=== PATIENT | female | born 1935 | race Caucasian/White ===

== ENCOUNTER 2020-06-03 13:40 | Observation (INO) | payer MEDICARE, OTHER ==
[2020-06-03] MEDS ORDERED: Sodium Chloride 0.9% 10 ML Syringe FLUSH PRN (13:59)
--- NOTE | 2020-06-03 13:59 | EDM.PDOC ---
ED HPI GENERAL MEDICAL PROBLEM - General Chief Complaint: Chest Pain Stated Complaint: CHEST PAIN Time Seen by Provider: 06/03/20 13:54 Source of Information: Reports: Patient, EMS History Limitations: Reports: No Limitations - History of Present Illness INITIAL COMMENTS - FREE TEXT/NARRATIVE: Patient presents emergency room via EMS, for the chief complaint of left-sided chest pain. She was sitting at home watching [place] on Netflix develop two short intermittent episodes of sharp left-sided anterior chest pain with no radiation. Both times the chest pain lasted for a few minutes. The patient got up from her chair to get her neighbor in the nearby apartment room in which the neighbor sat down with her. The patient was very weak and barely could get back to her chair. That is when she decided to call 911. She did take her diltiazem 60 mg tablet along with a half of baby aspirin. She states the pain relieved after she took the medicine. Patient has has history of acid reflux/belching which is getting worse and uncontrollable, history of coronary artery spasms which she was seen by her primary doctor yesterday. The patient was on 190 mg of diltiazem daily for a very long time, she notes a Cash [employer] quit making 190 mg tablets and therefore she was decreased down to 120 mg tablets and she states that her symptoms have been worse since she is been at the lower dose. Therefore her family doctor increased her dose 180 mg daily by taking 60 mg instant release 3 times a day. She has not started that dosing as she was going to pick it up at the pharmacy today. The patient states that she felt shortness of breath ,fatigue, and very anxious. She does have history of anxiety which has also been getting worse in which her escitalopram dose was increased yesterday to 10 mg daily. On arrival the EMS said the patient was chest pain-free therefore they did not give her nitroglycerin. They did give her 4 baby aspirin. They administered oxygen by nonrebreather because they thought that would help her anxiety. She did not have low oxygen saturations. Her vitals have been stable and she is had a little bit elevated blood pressures in sBP 160s and HR 80 regular. The patient was tested for COVID-19 1 week ago and was negative. She does not have any Covid-19 new exposures or has any concerns of that. She has no fever ,chills, body aches, cough ,or upper respiratory symptoms. - Related Data Allergies Allergy/AdvReac Type Severity Reaction Status Date / Time Iodine and Iodide Containing Allergy Severe Anaphylactic Verified 06/03/20 14:40 Produc Shock povidone-iodine Allergy Severe Anaphylactic Verified 06/03/20 14:40 [From Betadine] Shock soap [From Betadine] Allergy Severe Anaphylactic Verified 06/03/20 14:40 Shock azithromycin Allergy Diarrhea, Verified 06/03/20 14:40 rash Cephalosporins Allergy Rash Verified 06/03/20 14:40 ciprofloxacin Allergy Rash Verified 06/03/20 14:40 Iodinated Contrast Media Allergy Anaphylactic Verified 06/03/20 14:40 Shock Penicillins Allergy Diarrhea, Verified 06/03/20 14:40 Rash Sulfa (Sulfonamide Allergy Diarrhea, Verified 06/03/20 14:40 Antibiotics) Rash Tetracyclines Allergy Rash Verified 06/03/20 14:40 Home Meds: Home Meds Fluticasone Propionate [Flonase] 1 spray LEANNA BID PRN 09/29/15 [History] Latanoprost/Pf [Latanoprost 0.005% Eye Drop] 1 drop EYEBOTH BEDTIME 02/01/20 [History] Timolol Maleate 1 drop EYEBOTH DAILY 02/01/20 [History] dilTIAZem HCL [Cardizem] 60 mg PO TID 02/01/20 [History] Cholecalciferol (Vitamin D3) [Vitamin D3] 1 tab PO DAILY 05/23/20 [History] Escitalopram Oxalate 5 mg PO BID 05/23/20 [History] Omeprazole 20 mg PO BID 05/23/20 [History] Simethicone [Gas Relief] 180 mg PO Q4H PRN 05/23/20 [History] Loratadine [Allergy Relief] 10 mg PO DAILY PRN 06/03/20 [History] Multivitamin with Minerals [Multiple Vitamin] 1 tab PO DAILY 06/03/20 [History] Past Medical History HEENT History: Reports: Allergic Rhinitis, Cataract, Glaucoma, Hard of Hearing, Impaired Vision, Sinusitis Other HEENT History: The patient wears glasses. Bilateral presbycusis with no current hearing aide therapy. Allergic rhinitis and sinusitis. Cardiovascular History: Reports: Afib, Arrhythmia, CAD, Cardiomyopathy, Heart Murmur, Hypertension, Other (See Below) Other Cardiovascular History: Cardiomegaly by chest x-ray. Mild to moderate tricuspid valve insufficiency, mild aortic valve calcification without stenosis, and mild aortic valve and mitral valve insufficiency by echocardiogram. Atrial fibrillation in 2009 with otherwise no previous or current anticoagulation therapy or history of CT. Respiratory History: Reports: Asthma, Bronchitis, Recurrent, COPD, Intubation, Previous, Sleep Apnea, Other (See Below) Other Respiratory History: Left-sided rib fractures by chest x-ray. Benign pulmonary nodules. Gastrointestinal History: Reports: Chronic Constipation, Colon Polyp, Diverticulosis, Fatty Liver, Gastritis, GERD, Hemorrhoids, Hiatal Hernia, Irritable Bowel Syndrome Other Gastrointestinal History: History of tubular adenoma at 15 cm and hyperplastic colonic polyp at 18 cm at time of colonoscopy on 03/04/11. Hyperplastic colonic polyp at time of colonoscopy in 09/30/15. Diverticulitis requiring colon resection as below. Benign hepatic cysts with history of fatty liver and LFTs elevation. Gastritis, esophagitis, and large hiatal hernia requiring surgery as below with recurrence of her reflux and hiatal hernia after fundoplication by below. Genitourinary History: Reports: Retention, Urinary, Urinary Incontinence, UTI, Recurrent, Other (See Below) Other Genitourinary History: History of recurrent uterine and vaginal prolapses with urinary incontinence and recurrent UTIs. [employer] History: Reports: , Prolapsed Uterus Other C[employer] History: Surgical menopause with Complete hysterectomy and bilateral salpingo-oophorectomy in her 40s likely secondary to her uterine prolapse, etc. after a difficult delivery. Full term delivery without secondary to partial placenta previa with her last delivery. Otherwise, Full term without complications during pregnancies or deliveries. Musculoskeletal History: Reports: Arthritis, Back Pain, Chronic, Fracture, Neck Pain, Chronic, Osteoarthritis, Osteoporosis Other Musculoskeletal History: Scoliosis. History of right wrist, right shoulder, left ribs and right clavicular fractures. Neurological History: Reports: CVA, TIA, Other (See Below) Other Neuro History: TIA versus CVA by patient history however not noted in medical records. Psychiatric History: Reports: Anxiety, Depression Endocrine/Metabolic History: Reports: Osteopenia, Osteoporosis, Other (See Below) Other Endocrine/Metabolic History: Hyperglycemia Hematologic History: Reports: None Immunologic History: Reports: None Oncologic (Cancer) History: Reports: None Dermatologic History: Reports: None - Infectious Disease History Infectious Disease History: Reports: C-Difficile - Past Surgical History HEENT Surgical History: Reports: Cataract Surgery, Oral Surgery, Other (See Below) Other HEENT Surgeries/Procedures: Multiple teeth extractions. Cardiovascular Surgical History: Reports: None GI Surgical History: Reports: Appendectomy, Colon, Colonoscopy, EGD, Polypectomy, Other (See Below) Other GI Surgeries/Procedures: Last colonoscopy in 09/10/15 with EGD and colonoscopy on 06/01/07 and 08/26/03. EGD on 11/03/17 and 03/06/09. Additional colonoscopy on 03/04/01. Note multiple polypectomies as above. Hemicolectomy secondary to diverticulitis on 09/30/15. Negative liver biopsy for benign disease in 1981. Female Surgical History: Reports: Hysterectomy, Salpingo-Oophorectomy, Tubal Ligation, Other (See Below) Other Female Surgeries/Procedures: Complete hysterectomy with bilateral salpingo-oophorectomy in her 40s as above. Bladder suspensions 2. - Past Imaging History Past Imaging History: Reports: Cardiac Echo (02/18/12 with ejection fraction of 6065 percent with findings as above. Previous evaluation on 03/26/10.), CAT Scan (CT scan of the chest on 02/28/12, and 05/06/10, and 03/26/10. CT of the neck/soft tissue, maxillofacial region, abdomen, and pelvis on 01/28/09. CT of the abdomen and pelvis on 03/26/05), HIDA Scan (Last on 04/10/09), Mammogram (Last on 07/06/11), Sleep Study (12/10/08), Stress Testing (Negative Cardiolite stress test on 05/05/07 with ejection fraction of 72% with previous evaluation on 05/21/04.), Ultrasound (Abdominal ultrasound on 05/15/07. Liver ultrasound on 04/28/04.) Social & Family History - Family History Cardiac: Reports: CAD, Heart Failure, Other (See Below) Other Cardiac Family History: Mother with fatal CHF. Hypertension in brother and sister. GI: Reports: Other (See Below) Other GI Family History: Son and grandson with unknown type of liver disease. Neurological: Reports: Alzheimers Disease, CVA, Parkinson's, Other (See Below) Other Neurological Family History: Brother with CVA. Sister with Parkinson's disease. Son with Alzheimer's disease at age 58. Psychiatric: Reports: Anxiety, Depression, Other (See Below) Other Psychiatric Family History: Mother with manic anxiety depression disorder. Endocrine/Metabolic: Reports: Diabetes, type II, Other (See Below) Other Endocrine/Metabolic Family History: Brother with AODM. Mother and sibling with hypothyroidism. Oncologic: Reports: Bone, Lung, Lymphoma, Other (See Below) Other Oncologic Family History: Brother with lung cancer. Brother with bone cancer. Mother with lymphoma. - Caffeine Use Caffeine Use: Reports: Coffee - Living Situation & Occupation Living situation: Reports: (In about 2014), Alone ED ROS GENERAL - Review of Systems Review Of Systems: See Below Constitutional: Reports: No Symptoms. Denies: Fever, Chills, Malaise, Weakness HEENT: Reports: No Symptoms Respiratory: Reports: Shortness of Breath Cardiovascular: Reports: Chest Pain. Denies: Syncope Endocrine: Reports: Fatigue GI/Abdominal: Reports: Nausea, Other (belching). Denies: Abdominal Pain Musculoskeletal: Reports: No Symptoms Skin: Reports: No Symptoms Neurological: Denies: Dizziness, Headache, Difficulty Walking Psychiatric: Reports: Anxiety Hematologic/Lymphatic: Reports: No Symptoms Immunologic: Reports: No Symptoms ED EXAM, GENERAL - Physical Exam Exam: See Below Exam Limited By: No Limitations General Appearance: Alert, WD/WN, No Apparent Distress Eye Exam: Bilateral Eye: PERRL Ears: Hearing Grossly Normal Nose: Normal Inspection, Normal Mucosa Throat/Mouth: Normal Inspection, Normal Oropharynx, No Airway Compromise Head: Atraumatic, Normocephalic Neck: Normal Inspection, Supple, Non-Tender, Full Range of Motion Respiratory/Chest: No Respiratory Distress, Lungs Clear, Normal Breath Sounds, No Accessory Muscle Use Cardiovascular: Normal Peripheral Pulses, Regular Rate, Rhythm, No Edema, No Murmur, No Rub. No: Tachycardia, Extra Beats Peripheral Pulses: 2+: Radial (L), Radial (R), Posterior Tibial (L), Posterior Tibial (R), Dorsalis Pedis (L), Dorsalis Pedis (R) GI/Abdominal: Normal Bowel Sounds, Soft, Non-Tender, No Organomegaly, No Distention, No Mass. No: Distended, Guarding Back Exam: Normal Inspection, Full Range of Motion Extremities: Normal Inspection, Normal Range of Motion, Non-Tender, No Pedal Edema. No: Pedal Edema, Jose's Sign Neurological: Alert, Oriented, CN II-XII Intact, Normal Cognition Psychiatric: Anxious Skin Exam: Warm, Dry, Intact, No Rash. No: Diaphoretic, Pallor EKG INTERPRETATION EKG Date: 06/03/20 Time: 14:20 Rhythm: NSR [place]: Normal P-Wave: Present QRS: Normal ST-T: Normal QT: Normal Course - Vital Signs Last Recorded V/S: Last Vital Signs Temp 99.3 F 06/03/20 14:02 Pulse 74 06/03/20 15:45 Resp 15 06/03/20 15:45 BP 180/88 H 06/03/20 15:45 Pulse Ox 95 06/03/20 15:45 - Orders/Labs/Meds Orders: Active Orders 24 hr Category Date Time Status Admission Status [Patient Status] [ADT] Routine ADT 06/03/20 15:21 Ordered Cardiac Monitoring [RC] . DIRECTED Care 06/03/20 15:21 Ordered EKG Documentation Completion [RC] ASDIRECTED Care 06/03/20 13:56 Active B-TYPE NATRIURETIC PEPTIDE,BNP [CHEM] Stat Lab 06/03/20 13:30 Received CMP [COMPREHENSIVE METABOLIC PN,CMP] [CHEM] Stat Lab 06/03/20 13:30 Received TROPONIN I [CHEM] Stat Lab 06/03/20 13:30 Received Potassium Chloride [KCL 20 MEQ in Water 100 ML] 20 meq Med 06/03/20 17:11 Ordered Premix Bag 1 bag IV ONETIME Sodium Chloride 0.9% @ 100 MLS/HR(1,000ml) Med 06/03/20 15:30 Ordered Sodium Chloride 0.9% [Normal Saline] 1,000 ml IV ASDIRECTED Sodium Chloride 0.9% [Normal Saline] 1,000 ml Med 06/03/20 14:00 Active IV ASDIRECTED Sodium Chloride 0.9% [Saline Flush] Med 06/03/20 13:59 Active 10 ml FLUSH Q8HR PRN Saline Lock Insert [OM.PC] Routine Oth 06/03/20 13:59 Ordered EKG 12 Lead [EK] Stat Ther 06/03/20 13:56 Ordered Medication Orders Sodium Chloride (Normal Saline) 1,000 mls @ 20 mls/hr IV ASDIRECTED [facility] Potassium Chloride 20 meq/ (Premix) 100 mls @ 50 mls/hr IV ONETIME ONE Stop: 06/03/20 19:10 Last Admin: 06/03/20 15:31 Dose: 50 mls/hr Documented by: Sodium Chloride (Normal Saline) 1,000 mls @ 100 mls/hr IV ASDIRECTED [facility] Sodium Chloride (Saline Flush) 10 ml FLUSH Q8HR PRN PRN Reason: keep vein open Labs: Laboratory Tests 06/03/20 06/03/20 06/03/20 Range/Units 13:30 13:30 13:30 WBC 8.25 (5.00-10.00) 10^3/uL RBC 4.52 (3.80-5.50) 10^6/uL Hgb 14.2 (12.0-16.0) g/dL Hct 39.6 (37.0-47.0) % MCV 87.6 (82.0-92.0) fL MCH 31.4 H (27.0-31.0) pg MCHC 35.9 (32.0-36.0) g/dL RDW 11.8 (11.5-14.5) % Plt Count 336 (150-400) 10^3/uL MPV 9.3 (7.4-10.4) fL Sodium 130 L (136-145) mmol/L Potassium 2.5 L (3.3-5.3) mmol/L Chloride 90 L (98-115) mmol/L Carbon Dioxide 22.7 (21.0-32.0) mmol/L Anion Gap 19.8 H (5-15) mmol/L BUN 7 (6-25) mg/dL Creatinine 0.53 (0.51-1.17) mg/dL Est Cr Clr Drug Dosing 62.49 mL/min Estimated GFR (MDRD) > 60 mL/min Glucose 189 H (75 - 99) mg/dL Calcium 8.4 L (8.7-10.3) mg/dL Magnesium 1.7 L (1.8-2.4) mg/dL Total Bilirubin 0.7 (0.2-1.0) mg/dL AST 17 (15-37) U/L ALT 19 (12-78) U/L Alkaline Phosphatase 94 (46-116) IU/L Troponin I 0.06 (0.00-0.070) ng/mL Total Protein 7.5 (6.4-8.2) g/dL Albumin 3.96 (3.00-4.80) g/dL SARS CoV-2 RNA Rapid MERLE (NEGATIVE) 06/03/20 Range/Units 15:15 WBC (5.00-10.00) 10^3/uL RBC (3.80-5.50) 10^6/uL Hgb (12.0-16.0) g/dL Hct (37.0-47.0) % MCV (82.0-92.0) fL MCH (27.0-31.0) pg MCHC (32.0-36.0) g/dL RDW (11.5-14.5) % Plt Count (150-400) 10^3/uL MPV (7.4-10.4) fL Sodium (136-145) mmol/L Potassium (3.3-5.3) mmol/L Chloride (98-115) mmol/L Carbon Dioxide (21.0-32.0) mmol/L Anion Gap (5-15) mmol/L BUN (6-25) mg/dL Creatinine (0.51-1.17) mg/dL Est Cr Clr Drug Dosing mL/min Estimated GFR (MDRD) mL/min Glucose (75 - 99) mg/dL Calcium (8.7-10.3) mg/dL Magnesium (1.8-2.4) mg/dL Total Bilirubin (0.2-1.0) mg/dL AST (15-37) U/L ALT (12-78) U/L Alkaline Phosphatase (46-116) IU/L Troponin I (0.00-0.070) ng/mL Total Protein (6.4-8.2) g/dL Albumin (3.00-4.80) g/dL SARS CoV-2 RNA Rapid MERLE Negative (NEGATIVE) Meds: Medications Generic Name Dose Route Start Last Admin Trade Name Freq PRN Reason Stop Dose Admin Sodium Chloride 1,000 mls @ 20 mls/hr 06/03/20 14:00 Normal Saline IV ASDIRECTED [facility]O Potassium Chloride 20 meq/ 100 mls @ 50 mls/hr 06/03/20 17:11 06/03/20 15:31 Premix IV 06/03/20 19:10 50 mls/hr ONETIME ONE Administration Sodium Chloride 1,000 mls @ 100 mls/hr 06/03/20 15:30 Normal Saline IV ASDIRECTED [facility] Sodium Chloride 10 ml 06/03/20 13:59 Saline Flush FLUSH Q8HR PRN keep vein open - Re-Assessments/Exams Free Text/Narrative Re-Assessment/Exam: sodium level corrected with hyperglycemia, is 131, she does have hypokalemia 2.5. , She does not have any dysrhythmias she does have some subtle signs on EKG of some possible U waves. She does feel weak, no active chest pain. She does not take any diuretics. 06/03/20 14:39 06/03/20 15:15 Spoke with Nataliia PICKARD on-call [place]. She excepted care to admit Lia to the floor on observation. Lia has no chest pain shortness of breath, she is mildly anxious at times. Her sodium level is 131 therefore normal saline 0.9% 100 ml/hr IV ordered. She does have hypokalemia going to slowly infuse 10 mEq/h for total 40 mEq. They will recheck her potassium later on. Patient states she has had some diarrhea on and off with some intermittent constipation which she takes Pepto-Bismol for it (she notes "the stuff in a pink liquid bottle"). She denies taking any laxatives. She denies any taking diuretics as well. She does admit to a poor diet, as she lives at home by herself and cooks for herself. She has had no dysrhythmias no chest pain. EKG is normal no signs of ST depression or elevation. Questionable small U waves on rhythm which resembles hypokalemia, however there is artifact with the EKG., Chest x-ray normal. patient has no Covid-19 concerns however covid testing was collected per protocol to be admitted to the hospital. Throughout this entire emergency visit PPE was used per hospital protocol. Family were called and updated with plan of care as well. 06/03/20 15:19 Departure - Departure Time of Disposition: 15:07 Disposition: Refer to Observation Condition: Good Clinical Impression: Hypokalemia, Weakness Chest pain Qualifiers: Chest pain type: unspecified Qualified Code(s): R07.9 - Chest pain, unspecified Referrals: Batool Rodriguez MD [Primary Care Provider] - Forms: ED Department Discharge Sepsis Event Note (ED) - Focused Exam Vital Signs: Vital Signs Temp Pulse Resp BP Pulse Ox 06/03/20 15:45 74 15 180/88 H 95 06/03/20 15:30 68 14 157/95 H 95 06/03/20 15:00 69 19 158/90 H 95 06/03/20 14:45 66 23 H 155/76 H 92 L 06/03/20 14:30 82 11 L 168/92 H 93 L 06/03/20 14:22 75 14 161/90 H 92 L 06/03/20 14:02 99.3 F 76 15 170/95 H 92 L - My Orders Last 24 Hours: My Active Orders 06/03/20 13:30 B-TYPE NATRIURETIC PEPTIDE,BNP [CHEM] Stat CMP [COMPREHENSIVE METABOLIC PN,CMP] [CHEM] Stat TROPONIN I [CHEM] Stat 06/03/20 13:56 EKG Documentation Completion [RC] ASDIRECTED EKG 12 Lead [EK] Stat 06/03/20 13:59 Sodium Chloride 0.9% [Saline Flush] 10 ml FLUSH Q8HR PRN Saline Lock Insert [OM.PC] Routine 06/03/20 14:00 Sodium Chloride 0.9% [Normal Saline] 1,000 ml IV ASDIRECTED 06/03/20 15:21 Admission Status [Patient Status] [ADT] Routine Cardiac Monitoring [RC] . DIRECTED 06/03/20 15:30 Sodium Chloride 0.9% @ 100 MLS/HR(1,000ml) Sodium Chloride 0.9% [Normal Saline] 1,000 ml IV ASDIRECTED 06/03/20 17:11 Potassium Chloride [KCL 20 MEQ in Water 100 ML] 20 meq Premix Bag 1 bag IV ONETIME - Assessment/Plan Last 24 Hours: My Active Orders 06/03/20 13:30 B-TYPE NATRIURETIC PEPTIDE,BNP [CHEM] Stat CMP [COMPREHENSIVE METABOLIC PN,CMP] [CHEM] Stat TROPONIN I [CHEM] Stat 06/03/20 13:56 EKG Documentation Completion [RC] ASDIRECTED EKG 12 Lead [EK] Stat 06/03/20 13:59 Sodium Chloride 0.9% [Saline Flush] 10 ml FLUSH Q8HR PRN Saline Lock Insert [OM.PC] Routine 06/03/20 14:00 Sodium Chloride 0.9% [Normal Saline] 1,000 ml IV ASDIRECTED 06/03/20 15:21 Admission Status [Patient Status] [ADT] Routine Cardiac Monitoring [RC] . DIRECTED 06/03/20 15:30 Sodium Chloride 0.9% @ 100 MLS/HR(1,000ml) Sodium Chloride 0.9% [Normal Saline] 1,000 ml IV ASDIRECTED 06/03/20 17:11 Potassium Chloride [KCL 20 MEQ in Water 100 ML] 20 meq Premix Bag 1 bag IV ONETIME
[2020-06-03] MEDS ORDERED: Sodium Chloride 0.9% 1,000 ML IV SCH ×2 (14:00→15:30)
[2020-06-03 14:32] LABS: ANION GAP 19.8 mmol/L (5-15); CHLORIDE,CL 90 mmol/L (98-115); SODIUM,NA 130 mmol/L (136-145)
--- NOTE | 2020-06-03 14:34 | CR ---
[id number] RAD/RAD Chest PA or AP 1V EXAM: RAD Chest PA or AP 1V INDICATION: SP/SOB COMPARISON: November 21, 2018. DISCUSSION: Cardiomediastinal silhouette is normal in size and contour. No infiltrate, effusion, pneumothorax, or edema. Pulmonary hyperinflation. IMPRESSION: No acute cardiopulmonary abnormality. Adam Sanchez DO 06/03/20 [id number] Thank you for allowing us to participate in the care of your patient.
[2020-06-03] MEDS ORDERED: Potassium Chloride 20 MEQ in Premix Bag 1 BAG IV ONE ×2 (17:11→17:30)
[2020-06-03] MEDS ORDERED: EPINEPHrine 1:10,000 1 MG/10 ML Syringe IVPUSH PRN (18:15)
[2020-06-03] MEDS ORDERED: Ondansetron 4 MG/2 ML SDV IV PRN (18:15)
[2020-06-03] MEDS ORDERED: Nitroglycerin 0.4 MG Tab.SL SL PRN (18:15)
[2020-06-03] MEDS ORDERED: Atropine 0.1 MG/ML 10 ML Syringe IVPUSH PRN (18:15)
[2020-06-03] MEDS ORDERED: Acetaminophen 325 MG Tab PO PRN (18:15)
[2020-06-03] MEDS ORDERED: Lidocaine 2% 100 MG/5 ML Syringe IVPUSH PRN (18:15)
[2020-06-03] MEDS ORDERED: Simethicone 80 MG Tab.Chew PO PRN (18:22)
[2020-06-03] MEDS: Escitalopram 10 MG Tab PO SCH (20:29)
[2020-06-03] MEDS: Omeprazole 20 MG Cap.CR PO SCH (20:29)
[2020-06-03] MEDS: Diltiazem IR 60 MG Tab PO SCH (20:29)
[2020-06-03] MEDS ORDERED: Latanoprost 0.005% Ophth Soln 2.5 ML Bottle EYEBOTH SCH (21:00)
[2020-06-04] MEDS: Escitalopram 10 MG Tab PO SCH (08:05)
[2020-06-04] MEDS: Omeprazole 20 MG Cap.CR PO SCH (08:05)
[2020-06-04] MEDS: Diltiazem IR 60 MG Tab PO SCH (08:08)
[2020-06-04 08:31] LABS: ANION GAP 15.8 mmol/L (5-15); CHLORIDE,CL 101 mmol/L (98-115); SODIUM,NA 138 mmol/L (136-145)
[2020-06-04] MEDS ORDERED: Timolol Maleate 0.5% Ophth Soln 5 ML Bottle EYEBOTH SCH (09:00)
[2020-06-04] MEDS ORDERED: Glycopyrrolate 1 MG Tab PO SCH (11:00)
[2020-06-04 11:33] VITALS: BP 141/61; PULSE 61
--- NOTE | 2020-06-12 10:01 | PCM.HP.2 ---
H&P History of Present Illness - General Date of Service: 06/04/20 Admit Problem/Dx: Admission Diagnosis/Problem Admission Diagnosis/Problem Hypokalemia Source of Information: Patient, Old Records, Provider, RN - Related Data Allergies/Adverse Reactions: Allergies Allergy/AdvReac Type Severity Reaction Status Date / Time Iodine and Iodide Containing Allergy Severe Anaphylactic Verified 06/03/20 14:40 Produc Shock povidone-iodine Allergy Severe Anaphylactic Verified 06/03/20 14:40 [From Betadine] Shock soap [From Betadine] Allergy Severe Anaphylactic Verified 06/03/20 14:40 Shock azithromycin Allergy Diarrhea, Verified 06/03/20 14:40 rash Cephalosporins Allergy Rash Verified 06/03/20 14:40 ciprofloxacin Allergy Rash Verified 06/03/20 14:40 Iodinated Contrast Media Allergy Anaphylactic Verified 06/03/20 14:40 Shock Penicillins Allergy Diarrhea, Verified 06/03/20 14:40 Rash Sulfa (Sulfonamide Allergy Diarrhea, Verified 06/03/20 14:40 Antibiotics) Rash Tetracyclines Allergy Rash Verified 06/03/20 14:40 Home Medications: Home Meds Fluticasone Propionate [Flonase] 1 spray LEANNA BID PRN 09/29/15 [History] Latanoprost/Pf [Latanoprost 0.005% Eye Drop] 1 drop EYEBOTH BEDTIME 02/01/20 [History] Timolol Maleate 1 drop EYEBOTH DAILY 02/01/20 [History] dilTIAZem HCL [Cardizem] 60 mg PO TID 02/01/20 [History] Cholecalciferol (Vitamin D3) [Vitamin D3] 1 tab PO DAILY 05/23/20 [History] Escitalopram Oxalate 5 mg PO BID 05/23/20 [History] Omeprazole 20 mg PO BID 05/23/20 [History] Simethicone [Gas Relief] 180 mg PO Q4H PRN 05/23/20 [History] Loratadine [Allergy Relief] 10 mg PO DAILY PRN 06/03/20 [History] Multivitamin with Minerals [Multiple Vitamin] 1 tab PO DAILY 06/03/20 [History] Past Medical History HEENT History: Reports: Allergic Rhinitis, Cataract, Glaucoma, Hard of Hearing, Impaired Vision, Sinusitis Other HEENT History: The patient wears glasses. Bilateral presbycusis with no current hearing aide therapy. Allergic rhinitis and sinusitis. Cardiovascular History: Reports: Afib, Arrhythmia, CAD, Cardiomyopathy, Heart Murmur, Hypertension, Other (See Below) Other Cardiovascular History: Cardiomegaly by chest x-ray. Mild to moderate tricuspid valve insufficiency, mild aortic valve calcification without stenosis, and mild aortic valve and mitral valve insufficiency by echocardiogram. Atrial fibrillation in 2008 with otherwise no previous or current anticoagulation therapy or history of HI. Respiratory History: Reports: Asthma, Bronchitis, Recurrent, COPD, Intubation, Previous, Sleep Apnea, Other (See Below) Other Respiratory History: Left-sided rib fractures by chest x-ray. Benign pulmonary nodules. Gastrointestinal History: Reports: Chronic Constipation, Colon Polyp, Divertic ulosis, Fatty Liver, Gastritis, GERD, Hemorrhoids, Hiatal Hernia, Irritable Bowel Syndrome Other Gastrointestinal History: History of tubular adenoma at 15 cm and hyperplastic colonic polyp at 18 cm at time of colonoscopy on 03/04/11. Hyperplastic colonic polyp at time of colonoscopy in 09/30/15. Diverticulitis requiring colon resection as below. Benign hepatic cysts with history of fatty liver and LFTs elevation. Gastritis, esophagitis, and large hiatal hernia requiring surgery as below with recurrence of her reflux and hiatal hernia after fundoplication by below. Genitourinary History: Reports: Retention, Urinary, Urinary Incontinence, UTI, R ecurrent, Other (See Below) Other Genitourinary History: History of recurrent uterine and vaginal prolapses with urinary incontinence and recurrent UTIs. RIGGER THIRD History: Reports: , Prolapsed Uterus Other OB/BYN History: Surgical menopause with Complete hysterectomy and bilateral salpingo-oophorectomy in her 40s likely secondary to her uterine prolapse, etc. after a difficult delivery. Full term delivery without secondary to partial placenta previa with her last delivery. Otherwise, Full term without complications during pregnancies or deliveries. Musculoskeletal History: Reports: Arthritis, Back Pain, Chronic, Fracture, Neck Pain, Chronic, Osteoarthritis, Osteoporosis Other Musculoskeletal History: Scoliosis. History of right wrist, right sh oulder, left ribs and right clavicular fractures. Neurological History: Reports: CVA, TIA, Other (See Below) Other Neuro History: TIA versus CVA by patient history however not noted in medical records. Psychiatric History: Reports: Anxiety, Depression Endocrine/Metabolic History: Reports: Osteopenia, Osteoporosis, Other (See Below) Other Endocrine/Metabolic History: Hyperglycemia Hematologic History: Reports: None Immunologic History: Reports: None Oncologic (Cancer) History: Reports: None Dermatologic History: Reports: None - Infectious Disease History Infectious Disease History: Reports: C-Difficile - Past Surgical History HEENT Surgical History: Reports: Cataract Surgery, Oral Surgery, Other (See Below) Other HEENT Surgeries/Procedures: Multiple teeth extractions. Cardiovascular Surgical History: Reports: None GI Surgical History: Reports: Appendectomy, Colon, Colonoscopy, EGD, Polypectomy, Other (See Below) Other GI Surgeries/Procedures: Last colonoscopy in 09/10/15 with EGD and c olonoscopy on 06/01/07 and 08/26/03. EGD on 11/03/17 and 03/06/09. Additional colonoscopy on 03/04/01. Note multiple polypectomies as above. Hemicolectomy secondary to diverticulitis on 09/30/15. Negative liver biopsy for benign disease in 1981. Female Surgical History: Reports: Hysterectomy, Salpingo-Oophorectomy, Tubal Ligation, Other (See Below) Other Female Surgeries/Procedures: Complete hysterectomy with bilateral salpingo-oophorectomy in her 40s as above. Bladder suspensions 2. - Past Imaging History Past Imaging History: Reports: Cardiac Echo (02/18/12 with ejection fraction of 6065 percent with findings as above. Previous evaluation on 03/26/10.), CAT Scan (CT scan of the chest on 02/28/12, and 05/06/10, and 03/26/10. CT of the neck/soft tissue, maxillofacial region, abdomen, and pelvis on 01/28/09. CT of the abdomen and pelvis on 03/26/05), HIDA Scan (Last on 04/10/09), Mammogram (Last on 07/06/11), Sleep Study (12/10/08), Stress Testing (Negative Cardiolite stress test on 05/05/07 with ejection fraction of 72% with previous evaluation on 05/21/04.), Ultrasound (Abdominal ultrasound on 05/15/07. Liver ultrasound on 04/28/04.) Social & Family History - Family History Cardiac: Reports: CAD, Heart Failure, Other (See Below) Other Cardiac Family History: Mother with fatal CHF. Hypertension in brother and sister. GI: Reports: Other (See Below) Other GI Family History: Son and grandson with unknown type of liver disease. Neurological: Reports: Alzheimers Disease, CVA, Parkinson's, Other (See Below) Other Neurological Family History: Brother with CVA. Sister with Parkinson's disease. Son with Alzheimer's disease at age 58. Psychiatric: Reports: Anxiety, Depression, Other (See Below) Other Psychiatric Family History: Mother with manic anxiety depression disorder. Endocrine/Metabolic: Reports: Diabetes, type II, Other (See Below) Other Endocrine/Metabolic Family History: Brother with AODM. Mother and sibling with hypothyroidism. Oncologic: Reports: Bone, Lung, Lymphoma, Other (See Below) Other Oncologic Family History: Brother with lung cancer. Brother with bone cancer. Mother with lymphoma. - Tobacco Use Smoking Status *Q: Never Smoker Second Hand Smoke Exposure: No - Caffeine Use Caffeine Use: Reports: Coffee, Soda - Recreational Drug Use Recreational Drug Use: No - Living Situation & Occupation Living situation: Reports: (In about 2014), Alone H&P Review of Systems - Review of Systems: Review Of Systems: See Below General: Reports: No Symptoms HEENT: Reports: No Symptoms Pulmonary: Reports: No Symptoms Cardiovascular: Reports: No Symptoms Gastrointestinal: Reports: No Symptoms Genitourinary: Reports: No Symptoms Musculoskeletal: Reports: No Symptoms Skin: Reports: No Symptoms Psychiatric: Reports: Anxiety Neurological: Reports: No Symptoms Hematologic/Lymphatic: Reports: No Symptoms Immunologic: Reports: No Symptoms Exam - Exam Exam: See Below - Vital Signs Vital Signs: Last Vital Signs Temp 97.7 F 06/04/20 11:00 Pulse 61 06/04/20 11:00 Resp 19 06/04/20 11:00 BP 141/61 H 06/04/20 11:00 Pulse Ox 94 L 06/04/20 11:00 Weight: 126 lb 12.8 oz - Exam General: Alert, Oriented, Mild Distress HEENT: Mucosa Moist & [place] Neck: Supple Lungs: Clear to Auscultation, Normal Respiratory Effort Cardiovascular: Regular Rate, Regular Rhythm GI/Abdominal Exam: Normal Bowel Sounds (Female) Exam: Deferred Back Exam: No: CVA Tenderness (L), CVA Tenderness (R) Extremities: No: Pedal Edema Peripheral Pulses: 2+: Radial (R), 3+: Radial (L) Skin: Warm, Dry, Intact Neurological: Cranial Nerves Intact, Reflexes Equal Bilateral Neuro Extensive - Mental Status: Alert, Oriented x3, Normal Mood/Affect, Normal Cognition Neuro Extensive - Motor, Sensory, Reflexes: CN II-XII Intact, Normal Gait, Normal Reflexes Psychiatric: Anxious - Patient Data Result Diagrams: 06/04/20 07:22 06/04/20 07:22 Sepsis Event Note - Evaluation Sepsis Screening Result: No Definite Risk Problem List Initiated/Reviewed/Updated: Yes Assessment/Plan Comment:: Please use this H&P as a combined discharge summary as patient was discharged same day I saw the patient on June 04, 2020 History of present illness A pleasant 85-year-old female was admitted through the emergency room as she was having some left-sided chest pain. She was sitting at home watching the vision at home when she started having two short intermittent episodes of sharp left- sided anterior chest pain with no radiation. Both times the chest pain lasted for a few minutes. The patient got up from her chair to get her neighbor in the nearby apartment room in which the neighbor sat down with her. The patient was very weak and barely could get back to her chair. That is when she decided to call 911. She did take her diltiazem 60 mg tablet along with a half of baby aspirin which relieved her pain. Patient has has history of acid reflux/belching which is getting worse and uncontrollable, history of coronary artery spasms which she was seen by her PCP the day prior. The patient was on 190 mg of diltiazem daily for a very long time, she notes a pharmaceutical company quit making 190 mg tablets and therefore she was decreased down to 120 mg tablets and she states that her symptoms have been worse since she is been at the lower dose. Therefore her family doctor increased her dose 180 mg daily by taking 60 mg instant release 3 times a day. She had not started that dosing as she was going to pick it up at the pharmacy day of admission. He came into the ED she felt SOB, fatigue, and very anxious. She does have history of anxiety which has also been getting worse in which her escitalopram dose was increased yesterday day prior to admission. Hospital course on arrival the EMS said the patient was chest pain-free therefore they did not give her nitroglycerin. They did give her 4 baby aspirin. They administered oxygen by nonrebreather because they thought that would help her anxiety. She did not have low oxygen saturations. Her vitals have been stable and she is had a little bit elevated blood pressures in sBP 160s and HR 80 regular. The patient was tested for COVID-19 1 week ago and was negative. She does not have any Covid-19 new exposures or has any concerns of that. She has no fever ,chills, body aches, cough ,or upper respiratory symptoms. No overnight calls and concerns. Did have a low potassium at 2.5 and this was supplemented with IV potassium. Sodium 130 which normalized upon discharge. Troponin initially 0.6 and 0.05 respectively.. BNP 14. She had no telemetry concerns. Morning when I saw her I had a long discussion with her regarding her presentation, prehospital and hospital course and feel anxiety related as she has recently found out her son at a young age diagnosed with early Alzheimer's and this is quite upsetting for her. She has no family in the immediate area. She does have a cardiology appointment upcoming. Disposition Discharged from the hospital, cardiology appointment pending. Patient changes/adjustments Diltiazem, 60 mg p.o. 3 times daily (recently increased) Lexapro 10 mg p.o. daily, (recently increased) Final diagnosis Anxiety severe situational Hypokalemia, resolved Rule out HI, this was ruled out - Mortality Measure Prognosis:: Good
== END 2020-06-04 13:05 | disposition home or self-care (01) ==
LOC: KA.ED 13:40 → KA.MS 15:21
PROVIDERS: ADMIT Physician Assistant Medical; ATTEND Family Medicine
DX: E87.6 Hypokalemia (principal); Z11.59 Encounter for screening for other viral diseases
CPT/HCPCS: 36415; 71045; 80048; 80053; 83735; 83880; 84484; 85025; 85027; 93005; 96361; 96365; 96366; 99284; 99285; A9270; G0378; J3480; J7030; U0002